=== PATIENT | male | born 1960 | race Caucasian/White ===

== ENCOUNTER → 2021-07-12 09:38 | Outpatient (BNVA) | payer MEDICAID, SELFPAY | PROVIDERS: PCP Internal Medicine; Visit Provider Nurse Practitioner Family | DX: I87.8 Other specified disorders of veins (principal); G62.9 Polyneuropathy, unspecified | CPT/HCPCS: 99202 ==

== ENCOUNTER 2021-11-02 08:46 | Outpatient (REF) | payer MEDICAID, SELFPAY ==
--- NOTE | 2021-11-02 08:49 | EMG_ITS ---
Left tibial and peroneal motor studies were performed left superficial peroneal and sural sensory studies were performed. Tibial H-reflex was obtained and paraspinal muscles were tested. IMPRESSION: Moderately severe axonal sensory motor peripheral neuropathy. MD KEI Chan/MICAH / [id number]
== END 2021-11-02 08:47 | disposition home or self-care (01) ==
LOC: HO.NEURO 08:46
PROVIDERS: PCP Internal Medicine; Visit Provider Nurse Practitioner Family
DX: G62.9 Polyneuropathy, unspecified (principal)
CPT/HCPCS: 95886; 95909

== ENCOUNTER → 2021-11-21 14:41 | Outpatient (BNVA) | payer MEDICAID, SELFPAY | PROVIDERS: Visit Provider Nurse Practitioner Family ==